=== PATIENT | female | born 1995 | race Hispanic/Latino ===

== ENCOUNTER 2021-09-23 18:30 | Emergency (ER) | payer OTHER, SELFPAY ==
[2021-09-23 18:39] VITALS: BP 131/86; PULSE 79; RESP 15; TEMP 36.6; O2SAT 98; BMI 19.8
== END 2021-09-23 19:46 | disposition left against medical advice (07) ==
PROVIDERS: Emergency Provider Emergency Medicine; Family Provider Pediatrics
DX: R10.11 Right upper quadrant pain (principal)
CPT/HCPCS: 81003; 81025; 99282